=== PATIENT | male | born 2000 | race American Indian/Alaskan Native ===

== ENCOUNTER 2019-12-09 15:19 | Emergency (ER) | payer SELFPAY ==
[2019-12-09] MEDS ORDERED: SODIUM CHLORIDE 0.9% 1000 ML 1,000 ML IV ONE ×2 (15:41)
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
[2019-12-09 16:09] LABS: Basophils % (Auto) 0.3 % (0.0-1.8); Eosinophils # (Auto) 0.3 K/mm3 (0.0-0.4); Eosinophils % (Auto) 2.4 % (0.0-4.3); Hematocrit 45.5 % (35.5-45.6); Hemoglobin 15.3 gm/dl (11.8-15.2); Lymphocytes % (Auto) 8.5 % (13.4-35.0); Mean Corpuscular HGB Conc 34 % (32-34); Mean Corpuscular Volume 94 fl (84-94); Monocytes % (Auto) 8.3 % (0.0-7.3); Platelet Count 218 K/mm3 (140-440); Red Blood Count 4.82 M/mm3 (3.65-5.03); Red Cell Distribution Width 12.9 % (13.2-15.2)
--- NOTE | 2019-12-09 16:42 | Cat Scan Report ---
CT head/brain wo con INDICATION / CLINICAL INFORMATION: 19 years Male; Syncope. TECHNIQUE: Routine CT head without contrast. All CT scans at this location are performed using CT dos e reduction for ALARA by means of automated exposure control. COMPARISON: None. FINDINGS: BRAIN / INTRACRANIAL CONTENTS: The brain demonstrate appropriate attenuation. The ventricular system is within normal limits in size and configuration. There is no clear CT evidence of acute intracrania l hemorrhage or significant mass effect. ORBITS: No significant abnormality of visualized orbits. SINUSES / MASTOIDS: No significant abnormality in the visualized paranasal sinuses or mastoid air mine ls. CRANIOCERVICAL JUNCTION: No significant abnormality. ADDITIONAL FINDINGS: None. IMPRESSION: 1. There is no CT evidence of acute intracranial process. Signer Name: Manny Cox MD Signed: 12/09/2019 4:38 PM Workstation Name: [id number]
[2019-12-09 16:43] LABS: Creatine Kinase MB 9.9 ng/mL (0.0-4.0)
[2019-12-09 16:45] LABS: Alanine Aminotransferase 22 units/L (7-56); Albumin 4.5 g/dL (3.9-5); BUN/Creatinine Ratio 8; Blood Urea Nitrogen 11 mg/dL (9-20); Calcium 9.6 mg/dL (8.4-10.2); Hemolysis Index 16
[2019-12-09 20:15] VITALS: BP 132/81
== END 2019-12-09 20:14 ==
LOC: ED 15:19
DX: M62.82 Rhabdomyolysis (principal); E86.0 Dehydration; F15.10 Other stimulant abuse, uncomplicated; F17.200 Nicotine dependence, unspecified, uncomplicated; Z79.899 Other long term (current) drug therapy
CPT/HCPCS: 36415; 70450; 80053; 82550; 82553; 84484; 85025; 85379; 93005; 96360; 99285; J7030; 80320; G0480